=== PATIENT | male | born 1960 | race Caucasian/White ===

== ENCOUNTER 2017-07-17 18:44 | Emergency (ER) | payer MEDICAID ==
[~2017-07-17] VITALS: Ht 5703.2 cm; Wt 68.0 kg
[~2017-07-17 18:44] MED LIST: ARIP10TA15 PO; LYR25C PO; NORCO10T PO; TIZA2TAB4 PO
[2017-07-17 18:52] VITALS: BP 128/82
[2017-07-17] MEDS ORDERED: ketorolac trometh inj. 60 MG/2 ML VIAL IM ONE (21:20)
[2017-07-17] MEDS ORDERED: CYCL-1 PO (21:23)
[2017-07-17] MEDS ORDERED: NAPR-56 PO (21:23)
[2017-07-17] MEDS ORDERED: HYDR-569 PO (21:23)
[2017-07-17] MEDS ORDERED: insulin glargine (Lantus) pen - multi-dose SQ ONE (22:09)
== END 2017-07-17 22:43 | disposition home or self-care (01) ==
LOC: ER 18:45
DX: M16.0 Bilateral primary osteoarthritis of hip (principal); R10.30 Lower abdominal pain, unspecified; E03.9 Hypothyroidism, unspecified; G89.29 Other chronic pain; Z87.442 Personal history of urinary calculi; Z86.73 Personal history of transient ischemic attack (TIA), and cerebral infarction without residual deficits; Z79.899 Other long term (current) drug therapy
CPT/HCPCS: 72170; 82948; 96372; 99284; J1815; J1885

== ENCOUNTER 2017-08-22 19:30 | Emergency (ER) | payer MEDICAID ==
[~2017-08-22] VITALS: Ht 172.7 cm; Wt 57.4 kg
[~2017-08-22 19:30] MED LIST changes: +CYCL-1 PO; +HYDR-569 PO
[2017-08-22 19:44] VITALS: BP 154/96
[2017-08-22] MEDS ORDERED: DOXY100C43 PO (20:08)
[2017-08-22] MEDS ORDERED: CEPH250T PO (20:08)
[2017-08-22] MEDS ORDERED: cephalexin 250mg capsule PO ONE (20:10)
[2017-08-22] MEDS ORDERED: doxycycline hyclate 100mg tablet.DR PO ONE (20:10)
== END 2017-08-22 20:22 | disposition home or self-care (01) ==
LOC: ER 19:30
DX: L02.411 Cutaneous abscess of right axilla (principal); E11.9 Type 2 diabetes mellitus without complications; E03.9 Hypothyroidism, unspecified; G89.29 Other chronic pain; Z87.442 Personal history of urinary calculi; Z86.73 Personal history of transient ischemic attack (TIA), and cerebral infarction without residual deficits; Z90.49 Acquired absence of other specified parts of digestive tract; Z79.2 Long term (current) use of antibiotics; Z79.899 Other long term (current) drug therapy
CPT/HCPCS: 99283